=== PATIENT | male | born 1955 | race Caucasian/White ===

== ENCOUNTER 2021-05-31 17:55 | Inpatient (IN) | payer OTHER ==
[~2021-05-31] VITALS: Ht 182.9 cm; Wt 122.5 kg
[2021-05-31 19:00] VITALS: BP 137/87
[2021-05-31] MEDS ORDERED: NORVASC5 MG PO (19:04)
[2021-05-31] MEDS ORDERED: METFORMIN HCL500 M3 PO (19:04)
[2021-05-31] MEDS ORDERED: CARVEDILOL25 MG PO (19:04)
[2021-05-31] MEDS ORDERED: OXYCODONE HCL 55 MG PO (19:05)
[2021-05-31] MEDS ORDERED: LOSARTAN-HCTZ1 EAC3 PO (19:05)
[2021-05-31] MEDS ORDERED: XANAX1 MG PO (19:05)
[2021-05-31] MEDS ORDERED: LANTUS SUBQ (19:06)
[2021-05-31 20:09] LABS: ABSOLUTE BASOPHILS 0.1 thou/uL (0.0-0.2); ABSOLUTE EOSINOPHILS 0.2 thou/uL (0.0-0.7); ABSOLUTE LYMPHOCYTES 2.9 thou/uL (0.8-5.3); ABSOLUTE MONOCYTES 0.8 thou/uL (0.0-1.2); ABSOLUTE NEUTROPHILS 5.9 thou/uL (1.6-8.1); BASOPHILS 0.8 %; EOSINOPHILS 1.6 %; HEMATOCRIT 44.9 % (42.0-52.0); HEMOGLOBIN 14.8 gm/dL (14.0-18.0); LYMPHOCYTES 29.2 %; MCH 27.6 pg (26.0-34.0); MCHC 32.9 g/dL (28.0-37.0); MCV 83.8 fL (80.0-100.0); MONOCYTES 7.9 %; MPV 7.5 fl. (7.2-11.1); NUCLEATED RBCS 0 /100WBC; PLATELET COUNT* 262 thou/uL (150-400); POLYS 60.5 %; RBC 5.36 mil/uL (4.50-6.00); RDW-CV 14.7 % (10.5-14.5); WBC 9.8 thou/uL (4.0-11.0)
[2021-05-31 20:15] LABS: CALCIUM 8.8 mg/dL (8.5-10.1); CREATININE 1.4 mg/dL (0.6-1.3); POTASSIUM 3.6 mmol/L (3.5-5.1)
[2021-05-31 20:25] LABS: ALBUMIN 3.2 g/dL (3.4-5.0); MAGNESIUM 1.9 mg/dL (1.8-2.4); TOTAL BILIRUBIN 0.7 mg/dL (<0.1-1.0); TOTAL PROTEIN 7.1 g/dL (6.4-8.2)
[2021-06-01 00:19] LABS: URINE BILIRUBIN NEGATIVE (Negative); URINE BLOOD TRACE (Negative); URINE CLARITY CLEAR; URINE COLOR STRAW; URINE GLUCOSE-RANDOM 3+ (Negative); URINE KETONES NEGATIVE (Negative); URINE LEUKOCYTES-REFLEX NEGATIVE (Negative); URINE NITRITE-REFLEX NEGATIVE (Negative); URINE PROTEIN NEGATIVE (Negative); URINE UROBILINOGEN 0.2 E.U./dl (0.2-1.0)
[2021-06-01 01:00] VITALS: BP 137/83
[2021-06-01 05:00] VITALS: BP 107/74
--- NOTE | 2021-06-01 06:25 | NUR ---
PT REQUESTING RESTART OF HIS HOME PAIN MEDS, SPOKE WITH DR SCHAEFFER, ORDERS RECEIVED, SEE ORDERS.
[2021-06-01 10:00] VITALS: BP 133/66
[2021-06-01 12:55] VITALS: BP 134/77
--- NOTE | 2021-06-01 14:49 | EKG ---
[place] [address] ELECTROCARDIOGRAM REPORT Name: JOSHUA GALEANO Room: [place] [address] ADM IN [facility]#: [id number] Admission: 06/01/21 Attend Phys: Jacob Mantilla, Discharge: Date of : 51 Date of Service: 05/31/21 190 Report #: [id number] THIS REPORT FOR: //name// [facility] ED Test Date: 2021-05-31 Test Time: 19:09:03 Pat Name: JOSHUA GALEANO Department: Room: [facility] Gender: M Career Transition Specialist: JAMES : 1955 Requested By: Cyn Braswell Order Number: [id number] MD: Declan Hines Measurements Intervals [place] Rate: 133 P: TX: QRS: -11 QRSD: 92 T: -45 QT: 351 QTc: 523 Interpretive Statements Atrial flutter Inferior infarct, age indeterminate Prolonged QT interval No previous ECG available for comparison Electronically Signed On 06-01-2021 14:49:28 ORGAN RECOVERY COORDINATOR by Declan Hines [email or web address] <ELECTRONICALLY SIGNED> By: Declan Hines MD, FACC 06/01/21 1449 1909 1909 Declan Hines MD, [facility] /EPI
--- NOTE | 2021-06-01 14:50 | EKG ---
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 : 1955 Requested By: Cyn Braswell Order Number: [id number] MD: Declan Hines Measurements Intervals [place] Rate: 97 P: SD: QRS: 23 QRSD: 96 T: 64 QT: 335 QTc: 426 Interpretive Statements Atrial flutter Inferior infarct, old Compared to ECG 05/31/2021 19:09:03 Prolonged QT interval no longer present Myocardial infarct finding still present Electronically Signed On 06-01-2021 14:49:58 DRAG DOWN by Declan Hines [email or web address] <ELECTRONICALLY SIGNED> By: Declan Hines MD, [facility] 06/01/21 1449 05 05 Declan Hines MD, [facility] /EPI
--- NOTE | 2021-06-01 17:09 | CON ---
[address] [address] CONSULTATION Name: JOSHUA GALEANO Martina Room: [address] IN [place].#: [id number] Admission: 06/01/21 Attend Phys: Jacob Mantilla MD Discharge: Date of : 51 Report #: [id number] THIS REPORT FOR: cc: Gerda Rose,Declan Torres MD [facility] ~ cc: Gerda Rose DO DATE OF CONSULTATION: 06/01/2021 CARDIOLOGY CONSULTATION HISTORY OF PRESENT ILLNESS: The patient is a 66-year-old white male who I was asked to see in the hospital today after he was noted to be in atrial flutter. The patient has no previous history of heart disease. He is not very active, however, because of chronic back pain and he goes to the pain clinic. He is also morbidly obese, weighing 300 pounds, being 6 feet tall. He used to work in a warehouse, but is now retired. He has had several stress tests in the past that showed no evidence of ischemia. He was doing well until couple of nights ago, he was at a bar where there was lot of smoking. He started coughing. The next day, he did not feel very well and his throat felt tight. Yesterday, because of shortness of breath, he finally drove to the Emergency Room, was found to be in atrial flutter. Cardiology consultation requested. He was placed on IV diltiazem and his shortness of breath improved. He actually denied any palpitations, lightheadedness, syncope, peripheral edema. He has had no recent fever. He did receive the vaccine. He had COVID a year ago. He has had no syncopal spell. PAST MEDICAL HISTORY: He has had cholecystectomy, tonsillectomy. He has a history of hypertension, diabetes, hyperlipidemia. CURRENT MEDICATIONS: Consists of Xanax, amlodipine. He used to be on carvedilol, but ran out it last year. He is on insulin, losartan, HCTZ, metformin, oxycodone for chronic back pain. ALLERGIES: HE HAS A PREVIOUS INTOLERANCE TO CODEINE. FAMILY HISTORY: His mother of a stroke. SOCIAL HISTORY: He is . He and his live here in [place]. Quit smoking 30 years ago. Drinks alcohol occasionally. REVIEW OF SYSTEMS: He has no history of stroke. He has a history of sleep apnea. He has had CPAP in the past. No history of liver disease or kidney stones. No cancer. He saw a psychiatrist in the past [place] [address] CONSULTATION Name: JOSHUA GALEANO Room: [address] IN [facility]#: [id number] Admission: 06/01/21 Attend Phys: Jacob Mantilla MD Discharge: Date of : 51 Report #: [id number] skin condition. PHYSICAL EXAMINATION: GENERAL: Revealed a large, obese male, lying in bed, he appeared in no acute distress. VITAL SIGNS: He had a blood pressure of 130/70, pulse initially was 140. He is afebrile. HEENT: He was anicteric. Conjunctivae pink. Mucous membranes moist. NECK: Veins not appear distended. No carotid bruits. Neck is supple. CHEST: Clear to auscultation. CARDIAC: Regular, tachycardia. No significant murmurs. ABDOMEN: Obese. EXTREMITIES: Had no pitting edema. Dorsalis pedis pulse 2+ bilaterally. SKIN: Cool and dry. NEUROLOGIC: Nonfocal. DIAGNOSTIC DATA: His ECG on admission showed atrial flutter with a controlled ventricular response rate. His workup, he had a portable chest x-ray in the Emergency Room last night that showed normal heart size, clear lung cervantes. LABORATORY DATA: BUN 23, creatinine 1.4. His high sensitivity troponin was 13. BNP 323. Hematocrit 44.9. His COVID antigen stat test was negative. Urinalysis, 3+ glucose, negative leukocytes, negative protein. IMPRESSION AND RECOMMENDATIONS: 1. Atrial flutter. Suspect recent onset. Recommend anticoagulation. If the patient fails to convert, would consider IVELISSE and cardioversion. 2. Diabetes. The patient is on insulin. 3. Hypertension. The patient has been on a calcium pallavi, ARB and diuretic. He stopped taking his carvedilol a year ago. 4. Hyperlipidemia. The patient is on a statin drug. 5. Obesity. 6. History of anxiety. The patient uses Xanax. 7. Previous tobacco abuse. 8. Sleep apnea. The patient uses CPAP. 9. History of kidney stones. <ELECTRONICALLY SIGNED> By: Declan Hines MD, FACC 06/01/21 1709 0854 [id number] Hines MD, FACC /nt
[2021-06-01 18:00] VITALS: BP 99/59
[2021-06-01 22:00] VITALS: BP 125/80
[2021-06-02 02:00] VITALS: BP 106/66
[2021-06-02 03:54] LABS: CHOLESTEROL 122 mg/dL (<200); HDL CHOLESTEROL 54 mg/dL (>40); LDL CHOLESTEROL 39 mg/dL (<100); TC:HDL 2.3 Ratio (Not establshd); TRIGLYCERIDE 146 mg/dL (<150); VLDL 29 mg/dL (<40)
[2021-06-02 04:23] LABS: SERUM ASSESSMENT CLEAR
[2021-06-02 06:00] VITALS: BP 100/61
[2021-06-02 09:40] LABS: ABSOLUTE EOSINOPHILS 0.2 thou/uL (0.0-0.7); ABSOLUTE MONOCYTES 0.6 thou/uL (0.0-1.2); ABSOLUTE NEUTROPHILS 4.2 thou/uL (1.6-8.1); BASOPHILS 0.5 %; EOSINOPHILS 2.2 %; HEMATOCRIT 44.3 % (42.0-52.0); HEMOGLOBIN 14.4 gm/dL (14.0-18.0); LYMPHOCYTES 37.7 %; MCH 27.3 pg (26.0-34.0); MCHC 32.6 g/dL (28.0-37.0); MCV 83.8 fL (80.0-100.0); MONOCYTES 6.9 %; MPV 8.3 fl. (7.2-11.1); NUCLEATED RBCS 1 /100WBC; PLATELET COUNT* 241 thou/uL (150-400); POLYS 52.7 %; RBC 5.29 mil/uL (4.50-6.00); RDW-CV 14.4 % (10.5-14.5)
[2021-06-02 09:43] LABS: CALCIUM 8.8 mg/dL (8.5-10.1); POTASSIUM 3.7 mmol/L (3.5-5.1)
--- NOTE | 2021-06-02 10:10 | NUR ---
PT TAKEN TO [facility] FOR A SHOWER BY FREDI NEGRETE.
[2021-06-02 10:48] VITALS: BP 149/62
--- NOTE | 2021-06-02 11:05 | NUR ---
PT VERY APPRECIATIVE FOR HAVING SHOWER AND XANAX. PT RESTING COMFORTABLY IN FRESHLY CHANGED BEDDING WITH SPOUSE AT BEDSIDE. PT HAS NO CURRENT NEEDS. WILL CONTINUE TO MONITOR.
--- NOTE | 2021-06-02 11:14 | NUR ---
ADMISSION COMPLETED IN ED A BOARDED PATIENT. PATIENT NEEDS HEAD TO TOE DONE ASSESSMENT COMPLETED WHEN HE GETS TO THE FLOOR. ALL NEEDS CURRENTLY MET. PATIENT SHOWERED THIS MORNING.
--- NOTE | 2021-06-02 12:25 | EKG ---
[place] [address] ELECTROCARDIOGRAM REPORT Name: JOSHUA GALEANO Room: [place] [address] ADM IN [facility]#: [id number] Admission: 06/01/21 Attend Phys: Jacob Mantilla, Discharge: Date of : 51 Date of Service: 06/02/21 0929 Report #: [id number] THIS REPORT FOR: //name// ED Test Date: 2021-06-02 Test Time: 09:29:22 Pat Name: JOSHUA GALEANO Department: Room: [place] [address] Gender: M Event Organizer: ANITRA : 1955 Requested By: Declan Hines Order Number: [id number] Reading MD: Vitor Valenzuela Measurements Intervals [place] Rate: 93 P: [place]: QRS: 49 QRSD: 130 T: 60 QT: 398 QTc: 496 Interpretive Statements Atrial flutter with predominant 3:1 AV block Baseline wander in lead(s) V1 Inferior infarct, old Compared to ECG 05/31/2021 20:06:11 No significant changes noted Electronically Signed On 06-02-2021 12:24:53 CONCRETE HOPPER OPERATOR by Vitor Valenzuela [email or web address] <ELECTRONICALLY SIGNED> By: Vitor Valenzuela MD, FACC 06/02/21 1224 8 8 Vitor Valenzuela MD, FACC /EPI
[2021-06-02 13:58] VITALS: BP 116/80
[2021-06-02 15:37] VITALS: BP 110/83
--- NOTE | 2021-06-02 15:49 | NUR ---
PT TRANSFERRED FROM ER AT APPROX 1500, ACCOMPANIED BY PARTNER. PT IS PLEASANTLY A&OX4. PT IS UP AD JOSE. FALL PRECAUTION REVIEWED WITH PT AND PT VERBALIZES UNDERSTANDING TO PROMOTE SAFETY. PT DENIES ANY PAIN OR DISCOMFORT AT THIS TIME. ASSESSMENT REVIEWED AND AGREED WITH. MEDICATIONS RECONCILED AND MESSAGE SENT TO PHYSICIAN. VSS. HEART MONITORED PLACED.PT REPORTED HE USED TO WEAR A CPAP. PHYSICIAN NOTIFIED AND NEW ORDER FOR RT TO COMPLETE AN OVERNIGHT SAT STUDY.
--- NOTE | 2021-06-02 16:18 | NUR ---
CM COMPLETED ASSESSMENT WITH PT. PT LIVES HOME. USES CANE PRN. PT DENIES HX WITH HH OR SNF. PT IS INDEPENDENT W/CARES, ACTIVE AND DRIVES VEHICLE. POC: SCHED FOR CARDIOVERSION TOMORROW.
[2021-06-02 20:00] VITALS: BP 134/70
[2021-06-03] VITALS (22 sets, daily range): BP systolic 85–150; BP diastolic 51–89
--- NOTE | 2021-06-03 06:01 | NUR ---
PT AO X4, UP AD JOSE. HE IS SCHEDULED FOR A CARDIOVERSION TODAY. OVERNIGHT HE HAS BEEN SR/AFLUTTER/AFIB. HE HAS NO COMPLAINT OF CHEST PAIN, SOA OR COUGH. PT COMPLIANS OF CHRONIC PAIN IN THE LT THIGH.CALL LIGHT IN REACH FOR PT SAFETY
[2021-06-03] MEDS ORDERED: CARDIZEM60 MG PO (09:44)
[2021-06-03] MEDS ORDERED: LIPITOR 40 MG T40 M1 PO (09:44)
[2021-06-03] MEDS ORDERED: ELIQUIS5 MG PO (09:44)
[2021-06-03] MEDS ORDERED: SORINE 80 MG TA80 M1 PO (09:44)
--- NOTE | 2021-06-03 10:36 | NUR ---
Notified dr ad castellano wants pt to stay 1 more night per builder's labourer RN report.
--- NOTE | 2021-06-03 14:28 | TEE ---
[place] [address] TRANSESOPHAGEAL ECHOCARDIOGRAM Name: JOSHUA GALEANO Room: [address] IN [facility]#: [id number] Admission: 06/01/21 Attend Phys: Jacob Mantilla, Discharge: Date of : 51 Date of Service: 06/03/21 1427 Report #: [id number] THIS REPORT FOR: cc: Gerda Rose,Declan Torres MD [facility] ~ APPROVED REPORT Study performed: 06/03/2021 08:56:36 EXAM: Transesophageal Echocardiogram Patient Location: In-Patient Room #: [facility] Status: routine BSA: 2.42 HR: 93 bpm BP: 131/89 mmHg Rhythm: Atrial Flutter Other Information Study Quality: Good Echo Enhancing Agent Indication: Rule out Shunt Agent(s) / Amount(s) Used: Agitated Saline 20 cc Comments: 2 bubble studies Procedure After obtaining informed consent, patient underwent transesophageal echo in the [facility]. Type of Sedation : Conscious Sedation Sedation was administered by Pauline Babcock RN. Sedation start time: 924 Case end Time: 952 Sedation was achieved intravenously with: Versed (10) Fentanyl (100) Transesophageal probe was inserted and advanced into esophagus without difficulty by Declan Hines MD, FACC. Echo enhancement indication: R/O Septal defect. Echo enhancement agent administered: Agitated Saline The IVELISSE was performed without complications. Synchronized Cardioversion acheived with 100 Joules after 1 attempt(s). Rhythm following Synchronized Cardioversion: Normal Sinus Rhythm Throughout the procedure, the blood pressure, pulse oximetry, [place] [address] TRANSESOPHAGEAL ECHOCARDIOGRAM Name: JOSHUA GALEANO Room: [address]#: [id number] Admission: 06/01/21 Attend Phys: Jacob Mantilla, Discharge: Date of : 51 Date of Service: 06/03/21 1427 Report #: [id number] rhythm, and rate were monitored. The patient tolerated the procedure without adverse effects. Recovery from conscious sedation was uneventful and vital signs were stable. Left Ventricle The left ventricle is normal size. There is normal LV segmental wall motion. There is normal left ventricular wall thickness. Left ventricular systolic function is normal. The left ventricular ejection fraction is within the normal range. LVEF is 55-60%. Right Ventricle The right ventricle is normal size. The right ventricular systolic function is normal. Atria The left atrium size is normal. No thrombus is visualized in the left atrium or appendage. The interatrial septum is intact with no evidence for an atrial septal defect. Right atrium is mildly dilated. Aortic Valve The aortic valve is normal in structure. Trace aortic regurgitation. There is no aortic valvular stenosis. Mitral Valve The mitral valve is normal in structure. Trace mitral regurgitation. No evidence of mitral valve stenosis. Tricuspid Valve The tricuspid valve is normal in structure. Trace tricuspid regurgitation. Pulmonic Valve The pulmonary valve is normal in structure. There is no pulmonic valvular regurgitation. Great Vessels The aortic root is normal in size. Pericardium There is no pericardial effusion. <Conclusion> LVEF is 55-60%. The left [place] [address] TRANSESOPHAGEAL ECHOCARDIOGRAM Name: JOSHUA GALEANO Room: [address] IN .R.#: [id number] Admission: 06/01/21 Attend Phys: Jacob Mantilla, Discharge: Date of : 51 Date of Service: 06/03/211426 Report #: [id number] No thrombus is visualized in the left atrium or appendage. The interatrial septum is intact with no evidence for an atrial septal defect. successful cardioversion of atrial flutter to normal sinus rhythm <ELECTRONICALLY SIGNED> By: Declan Hines MD, [facility] 06/03/211426 26 26 Declan Hines MD, FACC /INF
--- NOTE | 2021-06-03 16:28 | NUR ---
PLAN OF CARE: PHYSICIAN INFORMS THAT THE PT MAY BE READY TO D/C HOME TOMORROW WITH SELF-CARE. NO CM D/C PLANNING NEEDS ANTICIPATED. CM WILL REMAIN AVAILABLE TO ASSIST AND FOLLOW NEEDED.
--- NOTE | 2021-06-03 16:30 | NUR ---
PLAN OF CARE: INPT ARU INFORMS THAT THE [id number] FOR THE PT HAS BEEN DENIED. PT'S FAMILY REQUEST FAMILY APPEAL. INPT ARU INFORMED AND WILL PROVIDE THIS INFO TO THE PT'S SPOUSE WHEN OBTAINED. CM WILL REMAIN AVAILABLE TO ASSIST AND FOLLOW NEEDED.
[2021-06-04 01:53] VITALS: BP 142/72
[2021-06-04 05:58] VITALS: BP 104/57
--- NOTE | 2021-06-04 06:09 | NUR ---
ASSUMED CARE OF PT AFTER REPORT AT 1930. PT A&OX4. VSS. PHYSICAL ASSESSMENT COMPLETED AND CHARTED. PT ON RA. PT TRACING SR/PAC ON TELE. PT UPADLIB TO RESTROOM. AT BS. COMPLAINED OF LEFT THIGH PAIN-MED GIVEN PER MAR. CALL LIGHT WITHIN REACH.
[2021-06-04 08:00] VITALS: BP 131/71
[2021-06-04 11:35] VITALS: BP 115/67
[2021-06-04 12:24] VITALS: BP 131/71
--- NOTE | 2021-06-04 12:37 | NUR ---
WENT OVER D/C PAPERWORK WITH PT, PTS . BOTH VERBALIZED UNDERSTANDING. MEIDCATIONS REVIEWED. FACT INFORMATION SHEETS GIVEN. IV AND TELE REMOVED.
== END 2021-06-04 13:31 | disposition home or self-care (01) | DRG 291 ==
LOC: M.ERS 17:55 → M.TBA-ER 21:07 → M.2W 06-01 11:00 → M.TBA-ER 06-01 11:00 → M.2W 06-02 15:00
PROVIDERS: Emergency Medicine; Internal Medicine; Internal Medicine Cardiovascular Disease; ADMIT Internal Medicine; ATTEND Internal Medicine
PROC: 5A2204Z Restoration of Cardiac Rhythm, Single (ICD-10-PCS; principal; 2021-06-03)
DX: I13.0 Hypertensive heart and chronic kidney disease with heart failure and stage 1 through stage 4 chronic kidney disease, or unspecified chronic kidney disease (principal); I50.31 Acute diastolic (congestive) heart failure; I48.92 Unspecified atrial flutter; D68.59 Other primary thrombophilia; N18.30 Chronic kidney disease, stage 3 unspecified; F41.9 Anxiety disorder, unspecified; I48.91 Unspecified atrial fibrillation; E78.5 Hyperlipidemia, unspecified; G89.29 Other chronic pain; E11.22 Type 2 diabetes mellitus with diabetic chronic kidney disease; M54.9 Dorsalgia, unspecified; E66.01 Morbid (severe) obesity due to excess calories; M79.606 Pain in leg, unspecified; G47.33 Obstructive sleep apnea (adult) (pediatric); K21.9 Gastro-esophageal reflux disease without esophagitis; Z20.822 Contact with and (suspected) exposure to COVID-19; Z90.49 Acquired absence of other specified parts of digestive tract; Z79.84 Long term (current) use of oral hypoglycemic drugs; Z79.899 Other long term (current) drug therapy; Z88.5 Allergy status to narcotic agent; Z68.36 Body mass index [BMI] 36.0-36.9, adult; Z99.81 Dependence on supplemental oxygen; Z87.442 Personal history of urinary calculi